=== PATIENT | female | born 1940 | race African-American/Black ===

== ENCOUNTER 2018-09-18 10:39 | Emergency (ER) | payer OTHER ==
[~2018-09-18] VITALS: Ht 157.5 cm; Wt 75.7 kg
[~2018-09-18 10:39] MED LIST: CATAFLAM50 MG PO
[2018-09-18] MEDS ORDERED: HUMULIN N100 UNIT/2 (11:02)
[2018-09-18] MEDS ORDERED: ASPIR 8181 MG (11:03)
[2018-09-18] MEDS ORDERED: ZOCOR20 MG (11:03)
[2018-09-18] MEDS ORDERED: ALDACTONE25 MG (11:04)
[2018-09-18] MEDS ORDERED: NORVASC5 MG (11:04)
[2018-09-18] MEDS ORDERED: CARVEDILOL3.125 MG (11:04)
[2018-09-18] MEDS ORDERED: ELIQUIS5 MG (11:05)
[2018-09-18] MEDS ORDERED: ISOSORBIDE DINI20 MG (11:05)
[2018-09-18] MEDS ORDERED: VASOTEC20 M1 (11:05)
[2018-09-18] MEDS ORDERED: PACERONE200 MG (11:05)
[2018-09-18] MEDS ORDERED: CELEBREX100 MG PO (17:19)
[2018-09-18] MEDS ORDERED: ORPHENADRINE C100 MG PO (17:19)
== END 2018-09-18 18:06 | disposition home or self-care (01) ==
LOC: ER 10:39
DX: G89.18 Other acute postprocedural pain (principal); M25.562 Pain in left knee; F45.42 Pain disorder with related psychological factors; Z89.512 Acquired absence of left leg below knee

== ENCOUNTER 2019-01-11 15:23 | Inpatient (IN) | payer OTHER ==
[~2019-01-11] VITALS: Ht 162.6 cm; Wt 77.1 kg
[~2019-01-11 15:23] MED LIST changes: +ALDACTONE25 MG; +ASPIR 8181 MG; +CARVEDILOL3.125 MG; +CELEBREX100 MG PO; +ELIQUIS5 MG; +HUMULIN N100 UNIT/2; +ISOSORBIDE DINI20 MG; +NORVASC5 MG; +ORPHENADRINE C100 MG PO; +PACERONE200 MG; +VASOTEC20 M1; +ZOCOR20 MG
--- NOTE | 2019-01-11 15:40 | NUR ---
PT ALERTA Y ORIETNDA X3 ESFERAS REFIERE PALPITACIONES DESDE EL PASADO SABADO. AL MOMENTO DE TRIAGE INDICA NO TENER EL SINTOMA. LOS SINTOMAS LOS DESCRIBE RANDY INTERMITENTES. SE REALIZA EKG Y SE PRESENTA A KALPESH KARLA.
--- NOTE | 2019-01-11 16:23 | NUR ---
SE ORIENTA PTE Y FAMILIAR SOBRE TX MEDICO EL CUAL REFIERE ENTENDER.SE COLOCA EN CAMA CON BARANDAS ELEVADAS,SE CONECTA A MONITOR CARDIACO LILLY ORDEN MEDICA Y OXIMETRIA,SE EXTRAEN MUESTRAS BAJO MEDIDAS ASEPTICAS,SE CANALIZA,SE ILENE S/V Y SE NOTIFICAN ABG A MR CORTES.
[2019-01-18] MEDS ORDERED: ELIQUIS2.5 MG PO (12:24)
== END 2019-01-18 14:11 | disposition home or self-care (01) | DRG 812 ==
LOC: ER 15:23 → ICU-2 19:39 → MEDJ 01-13 14:14
PROVIDERS: ADMIT Internal Medicine
PROC: 30233N1 Transfusion of Nonautologous Red Blood Cells into Peripheral Vein, Percutaneous Approach (ICD-10-PCS; 2019-01-11)
PROC: B246ZZZ Ultrasonography of Right and Left Heart (ICD-10-PCS; 2019-01-11)
PROC: 4A12X4Z Monitoring of Cardiac Electrical Activity, External Approach (ICD-10-PCS; 2019-01-13)
PROC: 0DJ08ZZ Inspection of Upper Intestinal Tract, Via Natural or Artificial Opening Endoscopic (ICD-10-PCS; principal; 2019-01-14)
PROC: 0DJD8ZZ Inspection of Lower Intestinal Tract, Via Natural or Artificial Opening Endoscopic (ICD-10-PCS; 2019-01-18)
DX: D64.89 Other specified anemias (principal); I25.810 Atherosclerosis of coronary artery bypass graft(s) without angina pectoris; I48.0 Paroxysmal atrial fibrillation; K29.60 Other gastritis without bleeding; K64.0 First degree hemorrhoids; K57.30 Diverticulosis of large intestine without perforation or abscess without bleeding; I10 Essential (primary) hypertension; E78.00 Pure hypercholesterolemia, unspecified; I73.89 Other specified peripheral vascular diseases; E11.9 Type 2 diabetes mellitus without complications; Z95.1 Presence of aortocoronary bypass graft; Z79.01 Long term (current) use of anticoagulants; Z89.512 Acquired absence of left leg below knee

== ENCOUNTER 2019-11-23 17:09 | Emergency (ER) | payer OTHER ==
[~2019-11-23] VITALS: Ht 162.6 cm; Wt 69.4 kg
[~2019-11-23 17:09] MED LIST changes: +ELIQUIS2.5 MG PO
== END 2019-11-23 18:44 | disposition home or self-care (01) ==
LOC: ER 17:09
DX: M79.605 Pain in left leg (principal); Z89.512 Acquired absence of left leg below knee